=== PATIENT | male | born 1980 | race Asian ===

== ENCOUNTER 2019-07-16 12:04 | Emergency (ER) | payer SELFPAY ==
[~2019-07-16] VITALS: Ht 175.3 cm; Wt 100.0 kg
[2019-07-16 12:06] VITALS: BP 134/95
== END 2019-07-16 13:21 | disposition left against medical advice (07) ==
LOC: EMS 12:04
DX: R10.9 Unspecified abdominal pain (principal); Z53.21 Procedure and treatment not carried out due to patient leaving prior to being seen by health care provider

== ENCOUNTER 2019-09-04 21:30 | Emergency (ER) | payer SELFPAY ==
[~2019-09-04] VITALS: Ht 175.3 cm; Wt 72.7 kg
[2019-09-04 21:35] VITALS: BP 163/56
[2019-09-04] MEDS ORDERED: SODIUM CHLORIDE 0.9% 250 ML IRRIG SOLUTION BOTTLE IRRIG ONE (21:45)
== END 2019-09-04 22:03 | disposition left against medical advice (07) ==
LOC: EMS 21:30
DX: M79.601 Pain in right arm (principal)